=== PATIENT | male | born 1960 | race Caucasian/White ===

== ENCOUNTER 2017-04-03 17:36 | Emergency (ER) | payer OTHER ==
[~2017-04-03] VITALS: Wt 74.4 kg
[~2017-04-03 17:36] MED LIST: ATENOLOL25 MG PO; BACTRIM DS 8001 TA1 PO; GABAPENTIN100 M2 PO; KEFLEX500 M1 PO; KEFLEX500 MG PO; MIDRIN (DURADR1 CAP PO; PREDNISONE10 MG PO
== END 2017-04-03 18:00 | disposition home or self-care (01) ==
LOC: ED 17:36
DX: H10.9 Unspecified conjunctivitis (principal); F17.200 Nicotine dependence, unspecified, uncomplicated; Z79.899 Other long term (current) drug therapy

== ENCOUNTER 2018-01-01 17:44 | Emergency (ER) | payer SELFPAY ==
[~2018-01-01] VITALS: Ht 175.2 cm; Wt 72.1 kg
[2018-01-01] MEDS ORDERED: SEPTDS PO (17:57)
== END 2018-01-01 18:01 | disposition home or self-care (01) ==
LOC: ED 17:44
DX: L02.413 Cutaneous abscess of right upper limb (principal); F17.200 Nicotine dependence, unspecified, uncomplicated

== ENCOUNTER 2018-04-29 21:03 | Emergency (ER) | payer SELFPAY ==
[~2018-04-29] VITALS: Ht 175.2 cm; Wt 71.7 kg
[~2018-04-29 21:03] MED LIST changes: +SEPTDS PO
== END 2018-04-29 21:25 | disposition home or self-care (01) ==
LOC: ED 21:03
DX: R21 Rash and other nonspecific skin eruption (principal); Z90.49 Acquired absence of other specified parts of digestive tract; Z79.899 Other long term (current) drug therapy

== ENCOUNTER 2018-05-16 19:47 | Emergency (ER) | payer SELFPAY ==
[~2018-05-16] VITALS: Ht 175.2 cm; Wt 72.6 kg
[2018-05-16] MEDS ORDERED: LIDEX 0.05% CRE15 GM T (20:11)
== END 2018-05-16 20:16 | disposition home or self-care (01) ==
LOC: ED 19:47
DX: L25.9 Unspecified contact dermatitis, unspecified cause (principal); Z79.899 Other long term (current) drug therapy

== ENCOUNTER → 2021-07-21 | Outpatient (CLI) | payer OTHER ==
[~2021-07-21] MED LIST changes: +LIDEX 0.05% CRE15 GM T
== END | disposition home or self-care (01) ==
LOC: COVID19 16:05
PROVIDERS: ATTEND Family Medicine
DX: U07.1 COVID-19 (principal)

== ENCOUNTER 2022-10-12 16:44 | Emergency (ER) | payer SELFPAY ==
[~2022-10-12] VITALS: Ht 175.2 cm; Wt 70.3 kg
== END 2022-10-12 19:24 | disposition home or self-care (01) ==
LOC: ED 16:44
DX: S61.012A Laceration without foreign body of left thumb without damage to nail, initial encounter (principal); Z79.899 Other long term (current) drug therapy; Z90.49 Acquired absence of other specified parts of digestive tract; W26.0XXA Contact with knife, initial encounter; Y93.89 Activity, other specified; Y92.89 Other specified places as the place of occurrence of the external cause; Y99.8 Other external cause status

== ENCOUNTER 2023-09-05 17:42 | Emergency (ER) | payer SELFPAY ==
[~2023-09-05] VITALS: Ht 175.2 cm; Wt 71.7 kg
[2023-09-05] MEDS ORDERED: Bactroban Oint22 GM T (19:06)
[2023-09-05] MEDS ORDERED: AMOXICILLIN500 M3 PO (19:06)
== END 2023-09-05 19:14 | disposition home or self-care (01) ==
LOC: ED 17:42
DX: S90.522A Blister (nonthermal), left ankle, initial encounter (principal); K02.9 Dental caries, unspecified; I10 Essential (primary) hypertension; Z90.49 Acquired absence of other specified parts of digestive tract; X58.XXXA Exposure to other specified factors, initial encounter; Y93.89 Activity, other specified; Y92.89 Other specified places as the place of occurrence of the external cause; Y99.8 Other external cause status

== ENCOUNTER 2024-05-28 10:14 | Emergency (ER) | payer SELFPAY ==
[~2024-05-28] VITALS: Ht 175.2 cm; Wt 72.6 kg
[~2024-05-28 10:14] MED LIST changes: +AMOXICILLIN500 M3 PO; +Bactroban Oint22 GM T
[2024-05-28 11:09] LABS: BASO % 0.5 % (0.0-1.0); HEMATOCRIT 39.7 % (42.0-52.0); LYMPH # 0.8 10*3/uL (1.3-4.4); LYMPH % 18.9 % (27.0-41.0); MEAN CELL VOLUME 94.5 fl (80.0-94.0); MEAN CORPUSCULAR HGB 32.6 pg (27.0-31.0); MEAN CORPUSCULAR HGB CONC 34.5 g/dl (33.0-37.0); MEAN PLATELET VOLUME 9.1 fl (9.6-12.3); MONO # 0.6 10*3/uL (0.1-1.0); MONO % 14.3 % (3.0-9.0); NEUT # 2.7 10*3/uL (2.3-7.9); NEUT % 65.1 % (47.0-73.0); PLATELET COUNT AUTOMATED 171 10*3/uL (130-400); WHITE BLOOD COUNT 4.2 10*3/uL (4.8-10.8)
[2024-05-28 11:31] LABS: ALKALINE PHOSPHATASE 83 U/L (46-116); BUN 13 mg/dl (9-23); CHLORIDE 104 mmol/L (98-107); SGPT/ALT 17 U/L (5-49); TOTAL PROTEIN 6.6 gm/dL (6.0-8.0)
[2024-05-28] MEDS ORDERED: SEPTDS PO (12:59)
== END 2024-05-28 13:07 | disposition home or self-care (01) ==
LOC: ED 10:14
PROVIDERS: Internal Medicine
DX: S90.921A Unspecified superficial injury of right foot, initial encounter (principal); I10 Essential (primary) hypertension; Z90.49 Acquired absence of other specified parts of digestive tract; W23.0XXA Caught, crushed, jammed, or pinched between moving objects, initial encounter; Y93.89 Activity, other specified; Y92.89 Other specified places as the place of occurrence of the external cause; Y99.8 Other external cause status

== ENCOUNTER 2024-07-26 21:56 | Emergency (ER) | payer SELFPAY ==
[~2024-07-26] VITALS: Ht 175.2 cm; Wt 73.5 kg
[2024-07-26] MEDS ORDERED: CEPHALEXIN 500 MG CAP PO ONE (22:20)
[2024-07-26] MEDS ORDERED: Dexamethasone Sodium Phospha 20 MG/5 ML VIAL IM ONE (22:20)
[2024-07-26] MEDS ORDERED: Bacitracin Zinc 14 GM TUBE T ONE (22:20)
[2024-07-26] MEDS ORDERED: SILVER SULFADIAZINE 25 GM TUBE T ONE (22:20)
[2024-07-26] MEDS ORDERED: CEPHALEXIN500 M1 PO (22:36)
[2024-07-26] MEDS ORDERED: PREDNISONE20 M1 PO (22:36)
[2024-07-26] MEDS ORDERED: ANTIBIOTIC28.4 GM T (22:36)
== END 2024-07-26 22:54 | disposition home or self-care (01) ==
LOC: ED 21:56
DX: L25.9 Unspecified contact dermatitis, unspecified cause (principal); R21 Rash and other nonspecific skin eruption; I10 Essential (primary) hypertension; Z90.49 Acquired absence of other specified parts of digestive tract